=== PATIENT | male | born 1965 | race Caucasian/White ===

== ENCOUNTER 2022-10-20 19:36 | Inpatient (IN) | payer OTHER ==
[~2022-10-20] VITALS: Ht 170.2 cm; Wt 101.6 kg
[2022-10-20 21:26] LABS: BASOPHILS % (AUTO) 0.4 % (0.0-2.0); EOSINOPHILS % (AUTO) 2.8 % (1.0-6.0); HEMATOCRIT 42.9 % (41-53); LYMPHOCYTES # (AUTO) 2.1 K/uL (1.0-4.8); LYMPHOCYTES % (AUTO) 30.9 % (22.0-44.0); MEAN CORPUSCULAR HEMOGLOBIN 30.6 pg (26.0-34.0); MEAN CORPUSCULAR HGB CONC 32.7 G/dL (31.0-37.0); MEAN CORPUSCULAR VOLUME 94 fL (80-100); MONOCYTES # (AUTO) 0.6 K/uL (0.1-1.0); MONOCYTES % (AUTO) 8.7 % (2.0-9.0); NEUTROPHILS # (AUTO) 3.8 K/uL (1.8-7.7); NEUTROPHILS % (AUTO) 57.2 % (40.0-70.0); PLATELET COUNT (AUTO) 237 K/uL (150-450); RED BLOOD CELL COUNT(AUTO) 4.59 MIL/uL (4.50-5.90)
[2022-10-20 21:35] LABS: CALCIUM, TOTAL 9.3 mg/dL (8.8-10.5); CREATININE 1.42 mg/dL (0.60-1.30); POTASSIUM 3.8 mmol/L (3.5-5.1)
[2022-10-20 21:39] LABS: INR 1.1 (0.9-1.1); PROTHROMBIN TIME 11.3 SEC (9.4-11.6)
[2022-10-20 21:44] LABS: BILIRUBIN,TOTAL 0.3 mg/dL (0.1-1.0); TOTAL PROTEIN, SERUM 7.9 g/dL (6.4-8.2)
[2022-10-20] MEDS ORDERED: ONDANSETRON HCL 4 MG/2 ML VIAL IVP PRN (23:30)
[2022-10-21] MEDS: HEPARIN SODIUM,PORCINE 5,000 UNITS/ML VIAL SQ SCH ×4 (00:16→23:53)
[2022-10-21] MEDS: MORPHINE SULFATE 2 MG/ML SYRINGE IVP PRN ×4 (00:22→21:47)
[2022-10-21 00:51] LABS: COVID AG,FIA SOURCE NASAL SWAB
[2022-10-21 03:24] VITALS: BP 107/77
[2022-10-21] MEDS ORDERED: NITR0.4T50 SL (05:29)
[2022-10-21 07:58] VITALS: BP 102/70
[2022-10-21] MEDS: ATORVASTATIN CALCIUM 20 MG TABLET PO SCH (09:32)
[2022-10-21] MEDS: ASPIRIN 81 MG CHEWABLE TABLET PO SCH (09:32)
[2022-10-21] MEDS: METOPROLOL TARTRATE 25 MG TABLET PO SCH ×2 (09:33→21:00)
[2022-10-21 11:54] VITALS: BP 111/62
[2022-10-21 17:06] VITALS: BP 109/62
[2022-10-21 20:52] VITALS: BP 106/54
[2022-10-22 00:53] VITALS: BP 120/52
[2022-10-22 05:55] VITALS: BP 123/73
[2022-10-22] MEDS: MORPHINE SULFATE 2 MG/ML SYRINGE IVP PRN (06:04)
[2022-10-22 08:00] VITALS: BP 119/62
[2022-10-22] MEDS: HEPARIN SODIUM,PORCINE 5,000 UNITS/ML VIAL SQ SCH ×3 (09:53→23:23)
[2022-10-22] MEDS: ASPIRIN 81 MG CHEWABLE TABLET PO SCH (09:53)
[2022-10-22] MEDS: METOPROLOL TARTRATE 25 MG TABLET PO SCH (09:53)
[2022-10-22] MEDS: ATORVASTATIN CALCIUM 20 MG TABLET PO SCH (09:53)
[2022-10-22] MEDS: ACETAMINOPHEN 325 MG TABLET PO PRN ×2 (10:09→20:41)
[2022-10-22 12:30] VITALS: BP 122/70
[2022-10-22 16:38] VITALS: BP 103/72
[2022-10-22 19:40] VITALS: BP 95/46
[2022-10-23 00:14] VITALS: BP 110/68
[2022-10-23] MEDS: ACETAMINOPHEN 325 MG TABLET PO PRN ×3 (03:06→15:34)
[2022-10-23 05:05] VITALS: BP 102/70
[2022-10-23] MEDS: HEPARIN SODIUM,PORCINE 5,000 UNITS/ML VIAL SQ SCH (08:46)
[2022-10-23] MEDS: ASPIRIN 81 MG CHEWABLE TABLET PO SCH (08:47)
[2022-10-23 08:51] VITALS: BP 104/64
[2022-10-23] MEDS ORDERED: LOSARTAN POTASSIUM 25 MG TABLET PO SCH (09:00)
[2022-10-23] MEDS ORDERED: METOPROLOL SUCCINATE 25 MG ER TABLET PO SCH (09:00)
[2022-10-23] MEDS ORDERED: ATORVASTATIN CALCIUM 40 MG TABLET PO SCH (09:00)
[2022-10-23] MEDS ORDERED: LISINOPRIL 5 MG TABLET PO SCH (09:00)
[2022-10-23] MEDS ORDERED: FUROSEMIDE 20 MG TABLET PO SCH (09:00)
[2022-10-23 11:21] VITALS: BP 118/81
[2022-10-23] MEDS ORDERED: ASPI-1450 PO (13:02)
[2022-10-23] MEDS ORDERED: ATOR40TA71 PO (13:03)
[2022-10-23] MEDS ORDERED: LOSA-381 PO (13:04)
[2022-10-23] MEDS ORDERED: METO25XL PO (13:04)
[2022-10-23] MEDS ORDERED: FURO20 PO (13:04)
[2022-10-23] MEDS ORDERED: SPIR-37 PO (13:05)
[2022-10-23] MEDS ORDERED: APIX5TAB PO (13:06)
[2022-10-23 15:47] VITALS: BP 117/54
[2022-10-23] MEDS ORDERED: HEPARIN SODIUM,PORCINE 5,000 UNITS/ML VIAL SQ SCH (16:00)
[2022-10-23] MEDS ORDERED: APIXABAN 5 MG TABLET PO SCH (21:00)
[2022-10-24] MEDS ORDERED: SPIRONOLACTONE 25 MG TABLET PO SCH (09:00)
[2022-10-24] MEDS ORDERED: ASPIRIN 81 MG DR TABLET PO SCH (09:00)
== END 2022-10-23 18:25 | DRG 313 ==
LOC: EMS 19:41 → 5N 10-21 02:17 → 6S 10-22 06:47 → 5N 10-22 13:41
PROVIDERS: ADMIT Internal Medicine; ATTEND Internal Medicine
DX: R07.9 Chest pain, unspecified (principal); I42.9 Cardiomyopathy, unspecified; I50.9 Heart failure, unspecified; E66.9 Obesity, unspecified; Z68.34 Body mass index [BMI] 34.0-34.9, adult; I25.10 Atherosclerotic heart disease of native coronary artery without angina pectoris; Z95.810 Presence of automatic (implantable) cardiac defibrillator; Z20.822 Contact with and (suspected) exposure to COVID-19; Z86.73 Personal history of transient ischemic attack (TIA), and cerebral infarction without residual deficits; I48.91 Unspecified atrial fibrillation; I11.0 Hypertensive heart disease with heart failure; E78.00 Pure hypercholesterolemia, unspecified
CPT/HCPCS: 71045; 80053; 82550; 83880; 84484; 85025; 85610; 85730; 93005; 93306; 99285; J1644; J2270; 36415-L1; 36415-TC